=== PATIENT | female | born 1985 | race Caucasian/White ===

== ENCOUNTER 2017-01-13 22:19 | Emergency (ER) | payer BC ==
[~2017-01-13 22:19] MED LIST: hydrOXYzine HCl 25 MG Tab PO ONE
[2017-01-13 22:23] VITALS: BP 137/78
[2017-01-13] MEDS ORDERED: hydrOXYzine HCl 25 MG Tab PO ONE (22:40)
[2017-01-13] MEDS ORDERED: Take Home: hydrOXYzine HCl 25 MG Tab, 4 Tab Pack PO ONE (22:41)
[2017-01-13] MEDS ORDERED: hydrOXYzine HCl 25 MG Tab ONE (22:52)
--- NOTE | 2017-01-13 22:54 | EDM.PDOC ---
ED HPI GENERAL MEDICAL PROBLEM - General Chief Complaint: Allergic Reaction Stated Complaint: allergic reaction Time Seen by Provider: 01/13/17 22:35 Source of Information: Reports: Patient History Limitations: Reports: No Limitations - History of Present Illness INITIAL COMMENTS - FREE TEXT/NARRATIVE: Having a sight reaction to an imbrel injection she received yesterday. Onset: Today Duration: Hour(s): Location: Reports: Lower Extremity, Right Front/Back Body Image: 1 - Inflammed local reaction Severity: Mild Improves with: Reports: None Associated Symptoms: Reports: No Other Symptoms Treatments INTERIOR DESIGN FACULTY MEMBER: Reports: Other Medication(s) Other Treatments INTERIOR DESIGN FACULTY MEMBER: prednisone, claritan, ativan Right Leg Pain Score (Numeric/FACES): 3 - Related Data Allergies Allergy/AdvReac Type Severity Reaction Status Date / Time adalimumab [From Humira] Allergy Headache Verified 01/20/16 20:40 cefaclor [From Ceclor] Allergy Itching Verified 01/20/16 20:40 erythromycin ethylsuccinate Allergy Itching Verified 01/20/16 20:40 [From E.E.S.] etanercept [From Enbrel] Allergy Itching Verified 01/13/17 22:24 levofloxacin [From Levaquin] Allergy Pain Verified 01/20/16 20:40 triamcinolone acetonide Allergy Cannot Verified 01/20/16 20:42 [From Kenalog] Remember Home Meds: Home Meds Celecoxib [CeleBREX] 200 mg PO BID 06/22/15 [History] Cyclobenzaprine [Flexeril] 10 mg PO TID PRN 06/22/15 [History] Folic Acid 1 mg PO DAILY 06/22/15 [History] LORazepam 1 mg PO Q8H 06/22/15 [History] Levothyroxine [Synthroid] 50 mcg PO DAILY 06/22/15 [History] Methotrexate 2.5 mg PO Q7D 06/22/15 [History] predniSONE [Prednisone] 5 mg PO DAILY 06/22/15 [History] sulfaSALAzine 1,000 mg PO BID 06/22/15 [History] Ondansetron [Zofran ODT] 4 mg PO Q6H 01/20/16 [History] Etanercept [Enbrel] 1 ml SQ Q7D 01/13/17 [History] Ketorolac [Toradol] 10 mg PO Q6H PRN 01/13/17 [History] Past Medical History HEENT History: Reports: Sinusitis Genitourinary History: Reports: Other (See Below) Other Genitourinary History: PATIENT WAS TOLD RECENTLY SHE HAD EITHER A UTI OR KIDNEY INFECTION AND WAS PUT ON BACTRIM; PAIN GOT WORSE AND WAS STARTED ON LEVAQUIN. SAW URINARY SPECIALIST AND WAS TOLD IT MAY BE KIDNEY STONE. 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 - Past Surgical History Musculoskeletal Surgical History: Reports: None Social & Family History - Family History Family Medical History: Noncontributory Cardiac: Reports: Afib, Bypass, [place], Pacemaker Musculoskeletal: Reports: Other (See Below) Other Musculoskeletal Family History: LUPUS ON PATERNAL AUNT AND TWO COUSINS Endocrine/Metabolic: Reports: Diabetes, Type I, Diabetes, type II Hematologic: Reports: None Oncologic: Reports: Lung - Tobacco Use Smoking Status *Q: Never Smoker Second Hand Smoke Exposure: No - Caffeine Use Caffeine Use: Reports: None - Recreational Drug Use Recreational Drug Use: No ED ROS ALLERGIC REACTION - Review of Systems Review Of Systems: ROS reveals no pertinent complaints other than HPI. ED EXAM GENERAL NO PERIP PULSE - Physical Exam Exam: See Below Exam Limited By: No Limitations Ears: Normal External Exam Throat/Mouth: Normal Inspection Head: Atraumatic Neck: Normal Inspection Respiratory/Chest: No Respiratory Distress Cardiovascular: Normal Peripheral Pulses Back Exam: Normal Inspection Extremities: Normal Inspection Neurological: Alert Psychiatric: Normal Affect Skin Exam: Erythema, Rash Course - Vital Signs Last Recorded V/S: Last Vital Signs Temp 97.9 F 01/13/17 22:20 Pulse 72 01/13/17 22:20 Resp 18 01/13/17 22:20 BP 137/78 01/13/17 22:20 Pulse Ox 97 01/13/17 22:20 - Orders/Labs/Meds Meds: Medications Discontinued Medications Generic Name Dose Route Start Last Admin Trade Name Freq PRN Reason Stop Dose Admin Hydroxyzine HCl 25 mg 01/13/17 22:40 01/13/17 22:47 Atarax PO 01/13/17 22:41 25 mg ONETIME ONE Administration Hydroxyzine HCl 1 packet 01/13/17 22:41 01/13/17 22:48 Take Home: Hydroxyzine Hcl 25 Mg, 4 Tab Pack PO 01/13/17 22:42 1 packet ONETIME ONE Administration Hydroxyzine HCl Confirm 01/13/17 22:52 01/13/17 22:47 Atarax Administered 01/13/17 22:53 Not Given Dose 100 mg .ROUTE .STK-MED ONE Departure - Departure Time of Disposition: 22:54 Disposition: Home, Self-Care 01 Condition: Good Clinical Impression: Allergen injection reaction - Discharge Information Forms: ED Department Discharge Additional Instructions: Follow up with your regular doctor this week as needed.
== END 2017-01-13 23:11 | disposition home or self-care (01) ==
LOC: CC.ED 22:19
DX: L27.1 Localized skin eruption due to drugs and medicaments taken internally (principal); T50.995A Adverse effect of other drugs, medicaments and biological substances, initial encounter; Z79.899 Other long term (current) drug therapy; Z88.1 Allergy status to other antibiotic agents; M06.9 Rheumatoid arthritis, unspecified; G43.909 Migraine, unspecified, not intractable, without status migrainosus; E03.9 Hypothyroidism, unspecified
CPT/HCPCS: 99283; A9270

== ENCOUNTER 2019-12-19 22:26 | Emergency (ER) | payer BC ==
--- NOTE | 2019-12-19 22:56 | EDM.PDOC ---
ED HPI GENERAL MEDICAL PROBLEM - General Chief Complaint: General Stated Complaint: I just don't feel good Time Seen by Provider: 12/19/19 22:35 Source of Information: Reports: Patient, Family History Limitations: Reports: No Limitations - History of Present Illness INITIAL COMMENTS - FREE TEXT/NARRATIVE: Patient to the emergency department with multiple complaints. The patient's main complaint is she has discomfort in the right ear. She denies any change in hearing she denies any fever chills. The patient denies any runny nose or congestion denies any sore throat. The patient also advises that she has also had some mild discomfort in the left ear as well but that comes and goes. She also advises that she has had some epigastric abdominal pain with nausea off and on as well. She does advise she has a history of GERD. She advises that this is not really bothering her at this point. In addition, the patient advises that she has felt as if she has had chest pain that comes and goes will last only a few seconds and goes away. She is unsure what this possibly could be and she is concerned where her father from a myocardial infarction. The patient also wanted me to listen to the bilateral jugular arteries to make sure that they sounded normal. The patient also advised that she has been placed on Neurontin for her fibromyalgia and she does not know if that is helping her very well and she has had to use her Flexeril at times when she does not think the Neurontin is helping. The patient denies any other symptoms. Onset: Gradual (Symptoms have been going on for quite some time and the patient has been seen multiple times according to her for these various complaints.) Duration: Week(s): Location: Reports: Abdomen. Denies: Back Quality: Reports: Ache Severity: Mild Improves with: Reports: None Worsens with: Reports: None Context: Reports: Other (Does not have any aggravating or relieving factors that she can identify) Associated Symptoms: Reports: Chest Pain (Advises for the past week or so she has pain that would last a second and goes away and she is not sure what could be causing that), Headaches (Advises that she has had migraines off and on as well however she does not have any migraines at this point), Nausea/Vomiting (Has had nausea without vomiting). Denies: Cough, Diaphoresis, Fever/Chills, Rash, Shortness of Breath, Weakness Treatments DELIVERY ARCHITECT: Reports: Other (see below) (The patient vies that she takes her current medication) - Related Data Allergies Allergy/AdvReac Type Severity Reaction Status Date / Time adalimumab [From Humira] Allergy Headache Verified 12/19/19 22:27 cefaclor [From Ceclor] Allergy Itching Verified 12/19/19 22:27 erythromycin ethylsuccinate Allergy Itching Verified 12/19/19 22:27 [From E.E.S.] etanercept [From Enbrel] Allergy Itching Verified 12/19/19 22:27 levofloxacin [From Levaquin] Allergy Pain Verified 12/19/19 22:27 triamcinolone acetonide Allergy Cannot Verified 12/19/19 22:27 [From Kenalog] Remember Home Meds: Home Meds Celecoxib [CeleBREX] 200 mg PO BID 06/22/15 [History] Cyclobenzaprine [Flexeril] 10 mg PO TID PRN 06/22/15 [History] Folic Acid 1 mg PO DAILY 06/22/15 [History] LORazepam 1 mg PO BID PRN 06/22/15 [History] Levothyroxine [Synthroid] 50 mcg PO DAILY 06/22/15 [History] predniSONE [Prednisone] 1 mg PO DAILY 06/22/15 [History] sulfaSALAzine 1,000 mg PO BID 06/22/15 [History] Ondansetron [Zofran ODT] 8 mg PO BID PRN 01/20/16 [History] Ketorolac [Toradol] 10 mg PO Q6H PRN 01/13/17 [History] Ascorbate Calcium [Vitamin C] 500 mg PO DAILY 12/20/18 [History] Betamethasone Dipropionate [Diprosone 0.05% Crm] 1 applic TOP BID 12/20/18 [History] Cyanocobalamin (Vitamin B12) [Vitamin B12] 1 tab PO Q48H 12/20/18 [History] Diclofenac Sodium [Voltaren 1% Gel] 1 - 2 gm TOP BID 12/20/18 [History] EPINEPHrine [Epinephrine] 0.3 ml IM DAILY PRN 12/20/18 [History] Famotidine 40 mg PO DAILY 12/20/18 [History] Ferrous Sulfate 325 mg PO DAILY 12/20/18 [History] Fexofenadine/Pseudoephedrine [[facility] Allergy Rlf-D 60-120 mg Tb] 1 tab PO Q12HR PRN 12/20/18 [History] Hyoscyamine Sulfate [Anaspaz] 0.125 mg PO BID 12/20/18 [History] InFLIXimab [Remicade] 200 mg IV ASDIRECTED 12/20/18 [History] Loratadine/Pseudoephedrine [Claritin-D 24 Hour Tablet] 1 tab PO DAILY PRN 12/20/18 [History] Pantoprazole [ProTONIX] 40 mg PO DAILY 12/20/18 [History] Rizatriptan Benzoate [Rizatriptan] 5 mg PO DAILY PRN 12/20/18 [History] Triamcinolone Acetonide [Triamcinolone Acetonide 0.1% Crm] 1 applic TOP BID 12/20/18 [History] Zinc Amino Acid Chelate [Zinc] 50 mg PO DAILY 12/20/18 [History] Past Medical History HEENT History: Reports: Sinusitis Genitourinary History: Reports: Other (See Below) Other Genitourinary History: PATIENT WAS TOLD RECENTLY SHE HAD EITHER A UTI OR KIDNEY INFECTION AND WAS PUT ON BACTRIM; PAIN GOT WORSE AND WAS STARTED ON LEVAQUIN. SAW URINARY SPECIALIST AND WAS TOLD IT MAY BE KIDNEY STONE. 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 - Past Surgical History Musculoskeletal Surgical History: Reports: None Social & Family History - Family History Family Medical History: Noncontributory Cardiac: Reports: Afib, Bypass, [place], Pacemaker Musculoskeletal: Reports: Other (See Below) Other Musculoskeletal Family History: LUPUS ON PATERNAL AUNT AND TWO COUSINS Endocrine/Metabolic: Reports: Diabetes, Type I, Diabetes, type II Hematologic: Reports: None Oncologic: Reports: Lung - Caffeine Use Caffeine Use: Reports: None ED ROS GENERAL - Review of Systems Review Of Systems: See Below Constitutional: Denies: Fever, Chills, Weakness HEENT: Reports: Ear Pain (As above). Denies: Hearing Loss, Nose Pain, Rhinitis, Sinus Problem, Throat Pain, Throat Swelling Respiratory: Reports: No Symptoms. Denies: Shortness of Breath, Cough Cardiovascular: Reports: Chest Pain (As above). Denies: Edema, Lightheadedness Endocrine: Reports: No Symptoms GI/Abdominal: Reports: Abdominal Pain, Nausea. Denies: Black Stool, Bloody Stool, Constipation, Diarrhea, Distension, Vomiting : Reports: No Symptoms Musculoskeletal: Reports: No Symptoms. Denies: Neck Pain, Back Pain Skin: Reports: No Symptoms. Denies: Bruising, Rash, Erythema Neurological: Denies: Dizziness, Headache, Numbness, Tingling, Change in Speech, Gait Disturbance Psychiatric: Reports: Anxiety ED EXAM, GENERAL - Physical Exam Exam: See Below Exam Limited By: No Limitations General Appearance: Alert, WD/WN, No Apparent Distress Ears: Normal External Exam, Normal Canal, Hearing Grossly Normal. No: Normal TMs (The left external ear canal and TM are normal the right TM does show a small effusion, the tympanic membrane is normal) Ear Exam: Right Ear: Other (Effusion), Left Ear: TM normal, Bilateral Ear: Canal Normal Nose: Normal Inspection, Normal Mucosa Throat/Mouth: Normal Inspection, Normal Lips, Normal Voice, No Airway Compromise Head: Atraumatic, Normocephalic Neck: Normal Inspection, Supple, Non-Tender, Full Range of Motion. No: Lymphadenopathy (L), Lymphadenopathy (R) Respiratory/Chest: No Respiratory Distress, Lungs Clear, Normal Breath Sounds, Chest Non-Tender Cardiovascular: Normal Peripheral Pulses, Regular Rate, Rhythm, No Murmur, Other (Bilateral carotids are without bruits or murmurs) Peripheral Pulses: 2+: Radial (L), Radial (R) GI/Abdominal: Soft, Non-Tender, No Organomegaly Back Exam: Normal Inspection, Full Range of Motion Extremities: Normal Inspection, Normal Range of Motion, Non-Tender, Normal Capillary Refill Neurological: Alert, Oriented, Normal Cognition, Normal Gait, No Motor/Sensory Deficits Psychiatric: Normal Affect, Normal Mood Skin Exam: Warm, Dry, Intact, Normal Color EKG INTERPRETATION EKG Date: 12/19/19 Time: 22:55 Rhythm: NSR [place]: Normal P-Wave: Present QRS: Normal ST-T: Normal QT: Normal EKG Interpretation Comments: Twelve-lead EKG shows an underlying sinus rhythm with a ventricular rate of 86 there is no injury or ischemia and there is normal R wave progression. Course - Vital Signs Text/Narrative:: The patient was evaluated in the emergency department the patient has a right TM effusion that the patient was advised that she will need to use [id number] medicine such as Claritin-D or Zyrtec-D, the patient did have a twelve-lead EKG that is normal. The patient was advised to continue her GERD medication as well as the rest of her medication. She is advised to follow-up the family doctor for further evaluation and treatment Last Recorded V/S: Last Vital Signs Temp 36.7 C 12/19/19 22:43 Pulse 93 12/19/19 22:43 Resp 18 12/19/19 22:43 BP 152/55 H 12/19/19 22:43 Pulse Ox 97 12/19/19 22:43 - Orders/Labs/Meds Orders: Active Orders 24 hr Category Date Time Status EKG Documentation Completion [RC] STAT Care 12/19/19 23:06 Active EKG 12 Lead [EK] Stat Ther 12/19/19 22:50 Stop Req Departure - Departure Time of Disposition: 23:01 Disposition: Home, Self-Care 01 Condition: Good Clinical Impression: Fluid level behind tympanic membrane of right ear, Anxiety, Non-cardiac chest pain GERD (gastroesophageal reflux disease) Qualifiers: Esophagitis presence: esophagitis presence not specified Qualified Code(s): K21.9 - Gastro-esophageal reflux disease without esophagitis - Discharge Information *PRESCRIPTION DRUG MONITORING PROGRAM REVIEWED*: Not Applicable *COPY OF PRESCRIPTION DRUG MONITORING REPORT IN PATIENT MERE: Not Applicable Instructions: Nonspecific Chest Pain, Adult, Gastroesophageal Reflux Disease, Adult, [id number] Referrals: PCP,Unknown [Primary Care Provider] - Forms: ED Department Discharge Additional Instructions: [id number] Claritin D or Zyrtec-D once a day for 7 days Continue all of your current medications Follow-up with your family doctor this week for further evaluation and treatment Return to the emergency department as needed Sepsis Event Note (ED) - Focused Exam Vital Signs: Vital Signs Temp Pulse Resp BP Pulse Ox 12/19/19 22:43 36.7 C 93 18 152/55 H 97 - Problem List & Annotations (1) Anxiety SNOMED Code(s): 46535022 Code(s): F41.9 - ANXIETY DISORDER, UNSPECIFIED Status: Acute Priority: Medium Current Visit: Yes (2) Fluid level behind tympanic membrane of right ear SNOMED Code(s): 581521013 Code(s): H65.91 - UNSPECIFIED NONSUPPURATIVE OTITIS MEDIA, RIGHT EAR Status: Acute Priority: Medium Current Visit: Yes (3) GERD (gastroesophageal reflux disease) SNOMED Code(s): 573111685 Code(s): K21.9 - GASTRO-ESOPHAGEAL REFLUX DISEASE WITHOUT ESOPHAGITIS Status: Acute Priority: Medium Current Visit: Yes Qualifiers: Esophagitis presence: esophagitis presence not specified Qualified Code(s): K21.9 - Gastro-esophageal reflux disease without esophagitis (4) Non-cardiac chest pain SNOMED Code(s): 122508655 Code(s): R07.89 - OTHER CHEST PAIN Status: Acute Priority: Medium C urrent Visit: Yes - Problem List Review Problem List Initiated/Reviewed/Updated: Yes - My Orders Last 24 Hours: My Active Orders 12/19/19 22:50 EKG 12 Lead [EK] Stat 12/19/19 23:06 EKG Documentation Completion [RC] STAT - Assessment/Plan Last 24 Hours: My Active Orders 12/19/19 22:50 EKG 12 Lead [EK] Stat 12/19/19 23:06 EKG Documentation Completion [RC] STAT Plan: As above See nursing notes for past medical history, past surgical history, past social history, past family medical history as reviewed
[2019-12-19 23:06] VITALS: BP 152/55; PULSE 93
== END 2019-12-19 23:15 | disposition home or self-care (01) ==
LOC: CC.ED 22:26
DX: H73.891 Other specified disorders of tympanic membrane, right ear (principal); K21.9 Gastro-esophageal reflux disease without esophagitis; F41.9 Anxiety disorder, unspecified; R07.89 Other chest pain; M06.9 Rheumatoid arthritis, unspecified; E03.9 Hypothyroidism, unspecified; Z88.8 Allergy status to other drugs, medicaments and biological substances; Z88.1 Allergy status to other antibiotic agents; Z79.899 Other long term (current) drug therapy
CPT/HCPCS: 93005; 99284-25

== ENCOUNTER 2020-01-01 09:13 | Emergency (ER) | payer BC ==
[2020-01-01] MEDS ORDERED: Amoxicillin/Clavulanate K 875-125 MG Tab PO ONE (09:14)
[2020-01-01 09:41] VITALS: BP 108/75; PULSE 104
[2020-01-01 10:07] LABS: CHLORIDE,CL 106 mEq/L (98-106); SODIUM,NA 142 mEq/L (136-145)
--- NOTE | 2020-01-01 10:27 | EDM.PDOC ---
ED HPI GENERAL MEDICAL PROBLEM - General Chief Complaint: General Stated Complaint: pain Time Seen by Provider: 01/01/20 10:00 Source of Information: Reports: Patient History Limitations: Reports: No Limitations - History of Present Illness INITIAL COMMENTS - FREE TEXT/NARRATIVE: Marcela is a 34 yo female who presents to ED with c/o generalized aches and pains. Reports around 0100 last night she had significant jaw and chest pain. Reports that has since subsided. Reported that last night it was severe pain, but now more of a dull ache. Does report she was seen one other time for this and they "found nothing." She reports hx of fibromyalgia and RA. Does report she is weaning off her prednisone and is down to 1 mg daily. Is wondering if this is maybe what is causing her to have increased pain. Denies any current chest pain, shortness of breath, N/V/D, urinary symptoms, dizziness, shortness of breath. Duration: Improving Location: Reports: Face, Chest, Back Quality: Reports: Ache, Dull Severity: Mild Improves with: Reports: None Worsens with: Reports: None Associated Symptoms: Reports: No Other Symptoms. Denies: Cough, Diaphoresis, Fever/Chills, Headaches, Loss of Appetite, Malaise, Nausea/Vomiting, Shortness of Breath, Syncope, Weakness Upper Jaw Pain Score (Numeric/FACES): 3 - Related Data Allergies Allergy/AdvReac Type Severity Reaction Status Date / Time adalimumab [From Humira] Allergy Headache Verified 01/01/20 09:15 cefaclor [From Ceclor] Allergy Itching Verified 01/01/20 09:15 erythromycin ethylsuccinate Allergy Itching Verified 01/01/20 09:15 [From E.E.S.] etanercept [From Enbrel] Allergy Itching Verified 01/01/20 09:15 levofloxacin [From Levaquin] Allergy Pain Verified 01/01/20 09:15 triamcinolone acetonide Allergy Cannot Verified 01/01/20 09:15 [From Kenalog] Remember Home Meds: Home Meds Celecoxib [CeleBREX] 200 mg PO BID 06/22/15 [History] Cyclobenzaprine [Flexeril] 10 mg PO BEDTIME 06/22/15 [History] Folic Acid 1 mg PO DAILY 06/22/15 [History] LORazepam 1 mg PO BID PRN 06/22/15 [History] Levothyroxine [Synthroid] 50 mcg PO DAILY 06/22/15 [History] predniSONE [Prednisone] 1 mg PO DAILY 06/22/15 [History] sulfaSALAzine 1,000 mg PO BEDTIME 06/22/15 [History] Ondansetron [Zofran ODT] 8 mg PO BID PRN 01/20/16 [History] Ketorolac [Toradol] 10 mg PO Q6H PRN 01/13/17 [History] Ascorbate Calcium [Vitamin C] 500 mg PO DAILY 12/20/18 [History] Betamethasone Dipropionate [Diprosone 0.05% Crm] 1 applic TOP BID PRN 12/20/18 [History] Cyanocobalamin (Vitamin B12) [Vitamin B12] 1 tab PO Q48H 12/20/18 [History] Diclofenac Sodium [Voltaren 1% Gel] 1 - 2 gm TOP BID PRN 12/20/18 [History] EPINEPHrine [Epinephrine] 0.3 ml IM DAILY PRN 12/20/18 [History] Famotidine 40 mg PO DAILY PRN 12/20/18 [History] Ferrous Sulfate 325 mg PO DAILY 12/20/18 [History] Fexofenadine/Pseudoephedrine [Cvs Allergy Rlf-D 60-120 mg Tb] 1 tab PO Q12HR PRN 12/20/18 [History] Hyoscyamine Sulfate [Anaspaz] 0.125 mg PO BID 12/20/18 [History] InFLIXimab [Remicade] 200 mg IV ASDIRECTED 12/20/18 [History] Loratadine/Pseudoephedrine [Claritin-D 24 Hour Tablet] 1 tab PO DAILY PRN 12/20/18 [History] Pantoprazole [ProTONIX] 40 mg PO DAILY 12/20/18 [History] Rizatriptan Benzoate [Rizatriptan] 5 mg PO DAILY PRN 12/20/18 [History] Triamcinolone Acetonide [Triamcinolone Acetonide 0.1% Crm] 1 applic TOP BID PRN 12/20/18 [History] Zinc Amino Acid Chelate [Zinc] 50 mg PO DAILY 12/20/18 [History] Amoxicillin/Clavulanate K [Augmentin 875-125 MG] 1 tab PO BID 8 Days #16 tablet 01/01/20 [Rx] Past Medical History HEENT History: Reports: Sinusitis Gastrointestinal History: Reports: GERD Genitourinary History: Reports: Other (See Below) Other Genitourinary History: PATIENT WAS TOLD RECENTLY SHE HAD EITHER A UTI OR KIDNEY INFECTION AND WAS PUT ON BACTRIM; PAIN GOT WORSE AND WAS STARTED ON LEVAQUIN. SAW URINARY SPECIALIST AND WAS TOLD IT MAY BE KIDNEY STONE. 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 - Past Surgical History HEENT Surgical History: Reports: None GI Surgical History: Reports: Cholecystectomy Female Surgical History: Reports: None Musculoskeletal Surgical History: Reports: None Other Musculoskeletal Surgeries/Procedures:: Nerve block Social & Family History - Family History Family Medical History: Noncontributory Cardiac: Reports: Afib, Bypass, AL, Pacemaker Musculoskeletal: Reports: Other (See Below) Other Musculoskeletal Family History: LUPUS ON PATERNAL AUNT AND TWO COUSINS Endocrine/Metabolic: Reports: Diabetes, Type I, Diabetes, type II Hematologic: Reports: None Oncologic: Reports: Lung - Tobacco Use Smoking Status *Q: Never Smoker Second Hand Smoke Exposure: No - Caffeine Use Caffeine Use: Reports: None - Recreational Drug Use Recreational Drug Use: No ED ROS GENERAL - Review of Systems Review Of Systems: Comprehensive ROS is negative, except as noted in HPI. ED EXAM, GENERAL - Physical Exam Exam: See Below Exam Limited By: No Limitations General Appearance: Alert, WD/WN, No Apparent Distress Eye Exam: Bilateral Eye: EOMI, Normal Fundi, Normal Inspection, PERRL Ears: Normal External Exam, Normal Canal, Hearing Grossly Normal, Normal TMs, Other (middle effusion right TM) Nose: Normal Inspection, No Blood, Nasal Swelling, Clear Rhinorrhea Throat/Mouth: Normal Inspection, Normal Lips, Normal Teeth, Normal Gums, Normal Oropharynx, Normal Voice, No Airway Compromise Head: Atraumatic, Normocephalic Neck: Normal Inspection, Supple, Non-Tender, Full Range of Motion Respiratory/Chest: No Respiratory Distress, Lungs Clear, Normal Breath Sounds, No Accessory Muscle Use, Chest Non-Tender Cardiovascular: Normal Peripheral Pulses, Regular Rate, Rhythm, No Edema, No Gallop, No JVD, No Murmur, No Rub Peripheral Pulses: 2+: Radial (L), Radial (R), Dorsalis Pedis (L), Dorsalis Pedis (R) GI/Abdominal: Normal Bowel Sounds, Soft, Non-Tender, No Organomegaly, No Distention, No Abnormal Bruit, No Mass Back Exam: Normal Inspection, Full Range of Motion. No: CVA Tenderness (L), CVA Tenderness (R), Decreased Range of Motion, Paraspinal Tenderness, Vertebral Tenderness Extremities: Normal Inspection, Normal Range of Motion, Non-Tender, Normal Capillary Refill, No Pedal Edema Neurological: Alert, Oriented, CN II-XII Intact, Normal Cognition, Normal Gait, Normal Reflexes, No Motor/Sensory Deficits Psychiatric: Normal Affect, Normal Mood Skin Exam: Warm, Dry, Intact, Normal Color, No Rash Lymphatic: No Adenopathy Course - Vital Signs Last Recorded V/S: Last Vital Signs Temp 99.8 F 01/01/20 09:39 Pulse 104 H 01/01/20 09:39 Resp 18 01/01/20 09:39 BP 108/75 01/01/20 09:39 Pulse Ox 98 01/01/20 09:39 - Orders/Labs/Meds Labs: Laboratory Tests 01/01/20 01/01/20 Range/Units 09:45 09:45 WBC 6.3 (5.0-10.0) 10^3/uL RBC 4.30 (4.00-5.50) 10^6/uL Hgb 13.3 (12.0-16.0) g/dL Hct 39.0 (37.0-47.0) % MCV 90.7 (82.0-94.0) fL MCH 30.9 (27.0-32.0) pg MCHC 34.1 (33.0-38.0) g/dL RDW Coeff of Madhu 11.4 (11.0-15.0) % Plt Count 207 (150-400) 10^3/uL Neut % (Auto) 67.4 (35-85) % Lymph % (Auto) 19.3 (10-55) % [place] % (Auto) 10.7 (0-16) % Eos % (Auto) 2.1 (0-5) % Baso % (Auto) 0.5 (0-3) % Neut # (Auto) 4.27 (1.80-7.00) 10^3/uL Lymph # (Auto) 1.22 (1.00-4.80) 10^3/uL [place] # (Auto) 0.68 (0.00-0.80) 10^3/uL Eos # (Auto) 0.13 (0.00-0.45) 10^3/uL Baso # (Auto) 0.03 10^3/uL ESR 9 Sodium 142 (136-145) mEq/L Potassium 3.7 (3.5-5.0) mEq/L Chloride 106 (98-106) mEq/L Carbon Dioxide 26 (21-32) mmol/L BUN 11 D (7-18) mg/dL Creatinine 0.7 (0.6-1.0) mg/dL Est Cr Clr Drug Dosing 89.56 mL/min Estimated GFR (MDRD) > 60 (>=60) mL/min Glucose 84 (75-99) mg/dL Calcium 8.7 (8.4-10.1) mg/dL Creatine Kinase 40 (21-215) U/L Troponin I < 0.017 (0.00-0.06) ng/mL C-Reactive Protein < 0.2 L (0.2-0.8) mg/dL Meds: Medications Discontinued Medications Generic Name Dose Route Start Last Admin Trade Name Librado PRN Reason Stop Dose Admin Amoxicillin/Clavulanate Potassium 2 packet 01/01/20 10:32 01/01/20 10:38 Take Home: Amox/Clavulanate 875-12, 2 Tab Pac PO 01/01/20 10:33 2 packet ONETIME ONE Administration Amoxicillin/Clavulanate Potassium 4 tab 01/01/20 09:14 Augmentin 875 Mg/125 Mg PO 01/01/20 09:15 .STK-MED ONE Prednisone 1 packet 01/01/20 10:24 01/01/20 10:31 Take Home: Prednisone 20 Mg, 2 Tab Pack PO 01/01/20 10:25 Not Given ONETIME ONE Departure - Departure Time of Disposition: 10:27 Disposition: Home, Self-Care 01 Condition: Good Clinical Impression: Fluid level behind tympanic membrane of right ear Sinusitis Qualifiers: Sinusitis location: maxillary Chronicity: acute Recurrence: recurrent Qualified Code(s): J01.01 - Acute recurrent maxillary sinusitis Rheumatoid arthritis Qualifiers: Rheumatoid arthritis location: unspecified site Rheumatoid factor presence: unspecified presence Qualified Code(s): M06.9 - Rheumatoid arthritis, unspecified - Discharge Information *PRESCRIPTION DRUG MONITORING PROGRAM REVIEWED*: Not Applicable *COPY OF PRESCRIPTION DRUG MONITORING REPORT IN PATIENT MERE: Not Applicable Prescriptions: Amoxicillin/Clavulanate K [Augmentin 875-125 MG] 1 tab PO BID 8 Days #16 tablet Instructions: Sinusitis, Adult Referrals: Lesia Ojeda NP [Primary Care Provider] - Forms: ED Department Discharge Additional Instructions: - May increase prednisone dosing up to 2 mg daily. Recommend consult/follow up with calender operator helper Friday. - Augmentin twice daily x 10 days. Remaining script can be picked up at [facility]. - Recommend continuing Claritin and also starting Flonase twice daily. May also try Sudafed if nasal congestion does not resolve. - Activity as tolerated - Rest and push fluids - Follow up with PCP if symptoms worsen or do not improve - Return to ED for emergent needs Sepsis Event Note (ED) - Evaluation Sepsis Screening Result: No Definite Risk - Assessment/Plan Assessment:: Sinusitis Rheumatoid Arthritis Fluid level behind TM, Right Plan: 34 yo female presents to ED with c/o sudden onset severe jaw, chest, and upper back pain around 0100 last evening. Reports pain has now subsided, but just wanted to get "checked out." She does have hx significant for RA and fibromyalgia. Follows with rheumatology in [place]. She does note she had been weaning off her prednisone the last few weeks and is down to 1 mg daily. Lab workup unremarkable, including inflammatory markers. Discussed with patient nothing emergent identified as cause. Do feel symptoms may be related to weaning off prednisone. Recommend she increase to 2 mg daily and follow up with rheumatology Friday. Patient also has significant sinusitis. Meds as directed. Recommend she also continue Claritin D and start Flonase twice daily. Patient discharged from facility in satisfactory condition.
[2020-01-01] MEDS: Take Home: predniSONE 20 MG, 2 Tab Pack PO ONE (10:31)
[2020-01-01] MEDS: Take Home: Amoxicillin/Clavulanate K 875-125 MG Tab, 2 Tab Pack PO ONE (10:38)
== END 2020-01-01 10:47 | disposition home or self-care (01) ==
LOC: CC.ED 09:13
DX: J01.01 Acute recurrent maxillary sinusitis (principal); H73.891 Other specified disorders of tympanic membrane, right ear; M06.9 Rheumatoid arthritis, unspecified; K21.9 Gastro-esophageal reflux disease without esophagitis; F41.9 Anxiety disorder, unspecified; E03.9 Hypothyroidism, unspecified; Z88.1 Allergy status to other antibiotic agents; Z88.8 Allergy status to other drugs, medicaments and biological substances; Z79.899 Other long term (current) drug therapy; Z88.7 Allergy status to serum and vaccine
CPT/HCPCS: 36415; 80048; 82550; 84484; 85025; 85652; 86140; 93005; 99285-25; A9270-GY